=== PATIENT | male | born 2000 | race Caucasian/White ===

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

== ENCOUNTER 2021-08-10 22:58 | Emergency (ER) | payer SELFPAY ==
[~2021-08-10] VITALS: Ht 188 cm; Wt 109.1 kg
[2021-08-10 23:00] VITALS: BP 166/91
[2021-08-10] MEDS ORDERED: LIDOCAINE 1%/EPI 1:100,000 20 ML VIAL. INJ ONE (23:30)
[2021-08-10] MEDS ORDERED: DOXY-181 PO (23:41)
--- NOTE | 2021-08-10 23:41 | PHYS DOC ---
Past Medical History Past Medical History: No Pertinent History (VIANEY AMARAL APRN) Past Surgical History: No Surgical History (VIANEY AMARAL APRN) Smoking Status: Never Smoker Alcohol Use: None Drug Use: None (VIANEY AMARAL APRN) General Adult EDM: Chief Complaint: SKIN PROBLEM HPI: HPI: Patient is a 21-year-old male that came in today for rash in between his legs. Patient states that over the last couple years he has noticed he has had bumps in the upper thigh area and the inner portion, they come and go sometimes they drain fluid sometimes they bleed they are very red and painful. Patient states that he has tried to decrease friction between his legs by wearing bicycle pants type underwear. He says that that he still continues to have issues with raised bumps that are drainage and inner thigh. Patient is up-to-date on all his immunizations. Denies fever and chills. (VIANEY AMARAL APRN) Review of Systems: Review of Systems: Constitutional: Denies fever or chills. [] Eyes: Denies change in visual acuity. [] HENT: Denies nasal congestion or sore throat. [] Respiratory: Denies cough or shortness of breath. [] Cardiovascular: Denies chest pain or edema. [] GI: Denies abdominal pain, nausea, vomiting, bloody stools or diarrhea. [] : Denies dysuria. [] Musculoskeletal: Denies back pain or joint pain. [] Integument: Rash on the inner thighs bilaterally Neurologic: Denies headache, focal weakness or sensory changes. [] Endocrine: Denies polyuria or polydipsia. [] Lymphatic: Denies swollen glands. [] Psychiatric: Denies depression or anxiety. [] (VIANEY AMARAL APRN) Heart Score: C/O Chest Pain: N/A Risk Factors: Risk Factors: DM, Current or recent (<one month) smoker, HTN, HLP, family history of CAD, obesity. Risk Scores: Score 0 - 3: 2.5% MACE over next 6 weeks - Discharge Home Score 4 - 6: 20.3% MACE over next 6 weeks - Admit for Clinical Observation Score 7 - 10: 72.7% MACE over next 6 weeks - Early Invasive Strategies (VIANEY AMARAL APRN) Current Medications: Current Medications Medications (Trade) Dose Ordered Sig/Jagdish Start Time Stop Time Status Last Admin Dose Admin Lidocaine/ Epinephrine (LIDOCAINE 1%-EPI 1:100,000 Multi-Dose) 20 ml 1X ONCE 08/10/21 23:30 08/10/21 23:31 08/10/21 23:26 20 ML (VIANEY AMARAL APRN) Allergies: Allergies: Allergies Coded Allergies Type Severity Reaction Last Updated Verified No Known Drug Allergies 05/18/18 No (VIANEY AMARAL APRN) Physical Exam: PE: Constitutional: Well developed, well nourished, no acute distress, non-toxic a ppearance. [] HENT: Normocephalic, atraumatic, bilateral external ears normal, oropharynx moist, no oral exudates, nose normal. [] Eyes: PERRLA, EOMI, conjunctiva normal, no discharge. [] Neck: Normal range of motion, no tenderness, supple, no stridor. [] Cardiovascular:Heart rate regular rhythm, no murmur [] Lungs & Thorax: Bilateral breath sounds clear to auscultation [] Abdomen: Bowel sounds normal, soft, no tenderness, no masses, no pulsatile masses. [] Skin: Bilateral inner thighs multiple areas of raised pustules noted on the right inner thigh there are 3 areas one is 2 cm by half a centimeter another 1 is 1 cm by half centimeter. Left inner thigh has 5-6 raised areas that are various stages of draining of healing no signs and symptoms of infection noted on the inner thighs bilaterally] Back: No tenderness, no CVA tenderness. [] Extremities: No tenderness, no cyanosis, no clubbing, ROM intact, no edema. [] Neurologic: Alert and oriented X 3, normal motor function, normal sensory function, no focal deficits noted. [] Psychologic: Affect normal, judgement normal, mood normal. [] (VIANEY AMARAL APRN) Current Patient Data: Vital Signs: Vital Signs Date Time Temp Pulse Resp B/P (MAP) Pulse Ox O2 Delivery O2 Flow Rate FiO2 08/10/21 23:00 98.5 94 16 166/91 (116) 98 Room Air 98.5 (VAINEY AMARAL APRN) EKG: EKG: [] (VIANEY AMARAL APRN) Radiology/Procedures: Radiology/Procedures: [] (VIANEY AMARAL APRN) Course & Med Decision Making: Course & Med Decision Making Pertinent Labs and Imaging studies reviewed. (See chart for details) 11:25 PM attempted to I&D an abscess on the right inner thigh no drainage noted area was very sclerotic scarred and painful to touch. 3 mL of lidocaine with epinephrine was injected into the area. 2330 patient informed that this is a chronic issue will be given doxycycline 100 mg twice daily for 7 full days, patient is also encouraged to exfoliate in between his thigh area, he is also instructed to use antibacterial soap in that area to decrease the bacterial load on the skin. Patient will be given a list of clinics that are little to no cost for him to follow-up with he is encouraged to follow-up as soon as possible. (VIANEY AMARAL APRN) Dragon Disclaimer: Dragon Disclaimer: This electronic medical record was generated, in whole or in part, using a voice recognition dictation system. (VIANEY AMARAL APRN) Departure Departure Impression: Primary Impression: Folliculitis Disposition: HOME / SELF CARE / HOMELESS Condition: STABLE Referrals: AKUA GALO MD (PCP) Patient Instructions: Folliculitis, Folliculitis-SportsMed Additional Instructions: Clean area twice daily with antibacterial soap. Pat dry. Exfoliate at least 2- 3 times a week, keep area clean and dry as much as possible. Doxycycline 100 mg take 1 tablet twice daily for the next 7 days. Tylenol and/or ibuprofen as needed for pain Triple antibiotic ointment to areas that look infected, also hydrocortisone cream [id number] as needed for inflammation. Aloe up with the one of the clinics listed on the brochure for follow-up and management of your folliculitis Scripts Doxycycline Monohydrate (DOXYCYCLINE MONOHYDRATE) 100 Mg Capsule 1 CAP PO BID for 7 Days, #14 CAP Prov: VIANEY AMARAL APRN 08/10/21 Attending Signature Attending Signature I have reviewed the PA/STREETCAR DISPATCHER's note and plan of care. I was available for consultation as needed during the patient's visit in the emergency department. I agree with the clinical impression, plan, and disposition. (LUIS ANTONIO KEITH DO) VIANEY AMARAL APRN Aug 10, 2021 23:41 LUIS ANTONIO KEITH DO Aug 11, 2021 23:49
== END 2021-08-10 23:47 | disposition home or self-care (01) ==
LOC: ER 22:58
DX: L73.9 Follicular disorder, unspecified (principal)
CPT/HCPCS: 10060; 99283; J3490; 96372